=== PATIENT | female | born 1965 | race Caucasian/White ===

== ENCOUNTER 2022-04-07 21:08 | Emergency (ER) | payer BC ==
[~2022-04-07] VITALS: Ht 162.6 cm; Wt 59.0 kg
== END 2022-04-07 23:39 | disposition home or self-care (01) ==
LOC: ER 21:08
DX: H66.90 Otitis media, unspecified, unspecified ear (principal); Z20.822 Contact with and (suspected) exposure to COVID-19; Z88.8 Allergy status to other drugs, medicaments and biological substances